=== PATIENT | male | born 1990 | race Hispanic/Latino ===

== ENCOUNTER 2021-08-27 15:41 | Emergency (ER) | payer SELFPAY ==
[2021-08-27 17:17] VITALS: BP 137/94
--- NOTE | 2021-08-27 19:19 | Emergency Department Report ---
<LILIA SINGH - Last Filed: 08/27/21 20:04> ED Lower Extremity HPI - General Chief Complaint: Extremity Injury, Lower Stated Complaint: RT LEG PAIN Time Seen by Provider: 08/27/21 19:15 Source: patient Mode of arrival: Ambulatory Limitations: No Limitations - History of Present Illness Initial Comments: 30-year-old morbid obese man presents to the emergency room for nontraumatic right knee pain and swelling since yesterday. Patient denies any injury. 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 He took ibuprofen yesterday. Has not taken anything for today. Denies any fever chills no nausea no vomiting. He states that the pain is worse when he tries to straighten his knee out. MD Complaint: other (Right knee pain) Onset/Timin -: days(s) Injury: Knee: Right (No injury) Type of Injury: unknown Severity scale (0 -10): 7 Improves With: immobilization Worsens With: weight bearing, movement Associated Symptoms: swelling, able to partially bear weight - Related Data Previous Rx's Medication Instructions Recorded Last Taken Type Ibuprofen [Motrin 800 MG tab] 800 mg PO Q8HR PRN #30 tablet 08/27/21 Unknown Rx Allergies Allergy/AdvReac Type Severity Reaction Status Date / Time No Known Allergies Allergy Unverified 08/27/21 17:17 ED Review of Systems Comment: All other systems reviewed and negative Musculoskeletal: arthralgia (Right knee) ED Past Medical Hx - Medications Home Medications: Home Medications Medication Instructions Recorded Confirmed Last Taken Type Ibuprofen [Motrin 800 MG tab] 800 mg PO Q8HR PRN #30 tablet 08/27/21 Unknown Rx ED Physical Exam - General Limitations: No Limitations - Head Head exam: Present: atraumatic, normocephalic - Eye Eye exam: Present: normal appearance - ENT ENT exam: Present: normal external ear exam - Neck Neck exam: Present: normal inspection, full ROM - Respiratory Respiratory exam: Absent: respiratory distress - Cardiovascular Cardiovascular Exam: Present: regular rate - Expanded Lower Extremity Exam Right Hip exam: Present: full ROM Upper Leg exam: Present: normal inspection, full ROM Knee exam: Present: full ROM, swelling. Absent: tenderness, abrasion, ecchymosis, deformity, crepidus Lower Leg exam: Present: normal inspection, full ROM. Absent: tenderness, swelling Ankle exam: Present: normal inspection, full ROM. Absent: tenderness, swelling Foot/Toe exam: Present: normal inspection, full ROM. Absent: tenderness, swelling Neuro vascular tendon exam: Present: no vascular compromise - Back Exam Back exam: Present: normal inspection - Neurological Exam Neurological exam: Present: alert, oriented X3 - Psychiatric Psychiatric exam: Present: normal affect, normal mood - Skin Skin exam: Present: warm, dry, intact, normal color. Absent: rash ED Lower Extremity MDM - Radiology Data Radiology results: report reviewed [facility] [address] [place] [address] XRay Report Signed Patient: ASHLYN OLMSTEAD MR#: [id number] : 1990 Acct:[id number] Age/Sex: 30 / M ADM Date: 08/27/21 Loc: ED Attending Dr: Ordering Physician: CHELLY BRAGA Date of Service: 08/27/21 Procedure(s): XR knee 3V RT Accession Number(s): [id number] cc: CHELLY BRAGA Fluoro Time In Minutes: XR knee 3V RT INDICATION / CLINICAL INFORMATION: Right knee pain and swelling. COMPARISON: None available. FINDINGS: No acute fracture. Normal alignment. Joint spaces are preserved. No destructive osseous lesion or suspicious periosteal reaction. Impression: 1.No acute fracture. Signer Name: Errol Schmitt MD Signed: 08/27/2021 7:37 PM Workstation Name: [id number] Transcribed By: CS Dictated By: Errol Schmitt MD Electronically Authenticated By: Errol Schmitt MD Signed Date/Time: 08/27/211936 DD/ 36 TD/TT: Print Cancel - Medical Decision Making 30-year-old morbid obese man presents to the emergency room for nontraumatic right knee pain and swelling since yesterday. Patient denies any injury. 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 He took ibuprofen yesterday. Has not taken anything for today. Denies any fever chills no nausea no vomiting. He states that the pain is worse when he tries to straighten his knee out. X-ray of right knee has been ordered. X-ray right knee shows no acute abnormalities. Patient be placed in a knee immobilizer and a referral to orthopedist. Patient can take ibuprofen or Tylenol for pain management. ED Disposition Clinical Impression: Right anterior knee pain Disposition: HOME / SELF CARE / HOMELESS Is pt being admited?: No Does the pt Need Aspirin: No Condition: Stable Instructions: Acute Knee Pain, Adult, [id number] Additional Instructions: X-ray is negative for any acute abnormalities. Take ibuprofen as needed for pain management. Wear knee immobilizer for comfort and follow-up with orthopedist. Prescriptions: Ibuprofen [Motrin 800 MG tab] 800 mg PO Q8HR PRN #30 tablet PRN Reason: Pain , Severe (7-10) Referrals: BRIA HDEZ MD [Staff Physician] - 3-5 Days Forms: Work/School Release Form(ED) Time of Disposition: 20:11 <DILANMALIA U - Last Filed: 08/29/21 09:40> ED Review of Systems ROS: Stated complaint: RT LEG PAIN Other details as noted in HPI ED Course Vital Signs 08/27/21 08/27/21 17:15 20:51 Temperature 97.8 F Pulse Rate 66 66 Respiratory 16 18 Rate Blood Pressure 137/94 137/94 [Right] O2 Sat by Pulse 99 99 Oximetry ED Lower Extremity MDM - Medical Decision Making I have reviewed the PA/STATUE MAKER's note and plan of care. I was available for consultation as needed at all times during the patient's visit in the emergency department but was not consulted on this case. Critical care attestation.: If time is entered above; I have spent that time in minutes in the direct care of this critically ill patient, excluding procedure time.
--- NOTE | 2021-08-27 19:42 | XRay Report ---
XR knee 3V RT INDICATION / CLINICAL INFORMATION: Right knee pain and swelling. COMPARISON: None available. FINDINGS: No acute fracture. Normal alignment. Joint spaces are preserved. No destructive osseous lesion or s uspicious periosteal reaction. Impression: 1.No acute fracture. Signer Name: Errol Schmitt MD Signed: 08/27/2021 7:37 PM Workstation Name: [id number]
== END 2021-08-27 20:51 | disposition home or self-care (01) ==
LOC: ED 15:41
DX: M25.561 Pain in right knee (principal)
CPT/HCPCS: 99283